=== PATIENT | female | born 1990 | race African-American/Black ===

== ENCOUNTER 2019-10-28 03:54 | Emergency (ER) | payer BC ==
[~2019-10-28] VITALS: Ht 165.1 cm; Wt 72.6 kg
[2019-10-28] MEDS ORDERED: EYE ALLERGY REL15 M1 OP (04:57)
== END 2019-10-28 05:24 | disposition home or self-care (01) ==
LOC: ER 03:54
DX: H10.13 Acute atopic conjunctivitis, bilateral (principal)